=== PATIENT | female | born 1995 | race Caucasian/White ===

== ENCOUNTER 2017-11-01 20:02 | Emergency (ER) | payer OTHER ==
[~2017-11-01] VITALS: Ht 165.1 cm; Wt 57.0 kg
[2017-11-02 00:27] VITALS: BP 141/81
== END 2017-11-02 00:11 | disposition home or self-care (01) ==
LOC: ER 20:20
DX: M54.2 Cervicalgia (principal); M54.5 Low back pain; Z98.890 Other specified postprocedural states; V43.52XA Car driver injured in collision with other type car in traffic accident, initial encounter; Y93.89 Activity, other specified; Y92.488 Other paved roadways as the place of occurrence of the external cause
CPT/HCPCS: 72125; 81025; 99284